=== PATIENT | female | born 1960 | race Asian ===

== ENCOUNTER 2017-08-28 11:28 | Emergency (ER) | payer OTHER ==
[2017-08-28 11:58] VITALS: BP 104/75
--- NOTE | 2017-08-28 12:49 | ED Physician Documentation ---
PD HPI HEENT - Stated complaint Stated Complaint: L EAR PX - Chief complaint Chief Complaint: Heent - History obtained from History obtained from: Patient - History of Present Illness Timing - onset: How many days ago (few) Timing - duration: Days (few) Timing - details: Gradual onset, Still present Location: Left ear Associated symptoms: Congestion. No: Fever, Facial swelling, Headache Similar symptoms before: Has not had sx before Recently seen: Not recently seen Review of Systems Constitutional: denies: Fever, Chills Ears: reports: Ear pain. denies: Loss of hearing, Drainage/discharge, Tinnitus/ ringing Nose: reports: Congestion. denies: Rhinorrhea / runny nose Throat: denies: Sore throat Respiratory: denies: Cough Skin: denies: Rash, Lesions Neurologic: denies: Altered mental status, Headache PD PAST MEDICAL HISTORY - Past Medical History Cardiovascular: None Respiratory: None Neuro: None Endocrine/Autoimmune: None - Present Medications Home Medications: Ambulatory Orders Medication Instructions Recorded Confirmed Amoxicillin 500 mg PO TID #20 capsule 08/28/17 Dexamethasone [Decadron] 4 mg PO DAILY #5 tablet 08/28/17 Tramadol HCl 50 mg PO Q6H PRN #20 tablet 08/28/17 - Allergies Allergies/Adverse Reactions: Allergies Allergy/AdvReac Type Severity Reaction Status Date / Time No Known Drug Allergies Allergy Verified 08/28/17 11:58 PD ED PE NORMAL - Vitals Vital signs reviewed: Yes - General General: Alert and oriented X 3, No acute distress, Well developed/nourished - HEENT HEENT: Moist mucous membranes, Pharynx benign. No: Ears normal (right is okay; left with some fluid but minimal redness. Canal is patent without swelling. Left preauricular node felt. Minimally tneder. TMJ without tenderness nor clicking. Teeth not tender. ) - Neck Neck: Supple, no meningeal sign, No adenopathy - Cardiac Cardiac: RRR, No murmur - Respiratory Respiratory: Clear bilaterally - Derm Derm: Normal color, Warm and dry - Neuro Neuro: Alert and oriented X 3, No motor deficit, Normal speech Results - Vitals Vitals: Oxygen O2 Source Room air PD MEDICAL DECISION MAKING - ED course Complexity details: considered differential (ear does not look that bad, but no other obvious cause. TMJ not tender, teeth and throat okay, mild preauricular adenopathy. Mastoid not tender. ), d/w patient, d/w family (spouse) Departure - Departure Disposition: 01 Home, Self Care Clinical Impression: Ear pain, left Otitis media Qualifiers: Otitis media type: serous Chronicity: acute Laterality: left Recurrence: not specified as recurrent Qualified Code(s): H65.02 - Acute serous otitis media, left ear Condition: Stable Record reviewed to determine appropriate education?: Yes Instructions: ED Otitis Media Serous Adult Follow-Up: DONG PIERSON [Primary Care Provider] - Prescriptions: Amoxicillin 500 mg PO TID #20 capsule Dexamethasone [Decadron] 4 mg PO DAILY #5 tablet Tramadol HCl 50 mg PO Q6H PRN #20 tablet PRN Reason: Pain Comments: There is some redness of the eardrum with some fluid. This could be a mild infection or just some inflammation. Will try Decadron anti-inflammatory and amoxicillin antibiotic. Use Tylenol for pain and add tramadol if needed for worse pain. Recheck with your primary care if not improving over the next few days. Return if other symptoms develop such as fever, rash, other symptoms. Discharge Date/Time: 08/28/17 13:22
[2017-08-28] MEDS ORDERED: DEXAMETHASONE 10 MG/ML VIAL PO STA (13:15)
[2017-08-28] MEDS ORDERED: AMOXICILLIN 250 MG CAPSULE PO STA (13:15)
[2017-08-28] MEDS ORDERED: traMADol 50 MG TABLET PO STA (13:15)
== END 2017-08-28 13:22 | disposition home or self-care (01) ==
LOC: ED 11:28
DX: H65.02 Acute serous otitis media, left ear (principal)
CPT/HCPCS: 99283; A9270